=== PATIENT | male | born 1960 | race Caucasian/White ===

== ENCOUNTER 2016-09-16 17:50 | Emergency (ER) | payer SELFPAY ==
[~2016-09-16] VITALS: Ht 180.3 cm; Wt 112.0 kg
[2016-09-16 17:55] VITALS: Ht 180.3 cm; Wt 112.0 kg
[2016-09-16] MEDS ORDERED: KETOROLAC 30 MG INJ IM STA (19:17)
--- NOTE | 2016-09-16 19:24 | ERD ---
ER Documentation Chief Complaint Date/Time DATE: 09/16/16 TIME: 19:18 Chief Complaint pt bib family with c/o back pain starting few days ago, getting worse HPI The patient is a 55-year-old male here with bilateral low back pain since proximally 2 weeks ago when he lifted a 60-80 pound box at work. He denies any radiation. Denies saddle paresthesia or change in bladder or bowel habits or function. He denies limb numbness or weakness. He denies fever. This pain is better with sitting, laying down, walking, and standing. It is worse when he is changing positions from a sitting to a standing position. He had similar episode approximately 7 years ago which resolved completely. No home treatments. He was seen by his primary care doctor yesterday and was not needed for pain, however x-rays of his lumbar spine were obtained and the results will be available for the patient on Sunday at his follow-up appointment. The patient is concerned that he has a kidney stone and requested a urine test. ROS All systems reviewed and are negative except as per history of present illness. Medications Home Meds Active Scripts Naproxen* (Naprosyn*) 500 Mg Tablet, 500 MG PO BID Y for PAIN AND/OR INFLAMMATION, #30 TAB Prov:DYAN WOODRUFF, COMMUNITY HE[employer] REPRESENTATIVE 09/16/16 Allergies Allergies: Coded Allergies: No Known Allergy (Unverified , 09/16/16) PMhx/Soc Medical and Surgical Hx: pt denies Medical Hx, pt denies Surgical Hx History of Surgery: No Anesthesia Reaction: No Hx Neurological Disorder: No Hx Respiratory Disorders: No Hx Cardiac Disorders: Yes (HTN) Hx Psychiatric Problems: No Hx Miscellaneous Medical Probl: No Hx Alcohol Use: No Hx Substance Use: No Hx Tobacco Use: No Smoking Status: Never smoker Physical Exam Vitals Vital Signs Date Time Temp Pulse Resp B/P Pulse Ox O2 Delivery O2 Flow Rate FiO2 09/16/16 21:18 97.9 62 18 120/70 98 Room Air 09/16/16 17:55 98.3 88 18 118/72 98 Physical Exam INITIAL VITAL SIGNS: Reviewed by me GENERAL: Alert. Well developed and well nourished. No respiratory distress HEAD: Head is normocephalic. Atraumatic. EYES: EOMI. No scleral icterus. No conjunctival injection. ENT: External ears, nose, and mouth normal. Nasal passages patent. Moist mucous membranes. NECK: Supple. Full range of motion. Trachea midline. No bony or myofascial tenderness to palpation. No step-off. RESPIRATORY: No tachypnea. Clear to auscultation bilaterally. No wheezing, rales , or rhonchi. CV: Regular rate and rhythm. No murmurs, rubs, or gallops ABDOMEN: Soft, non-distended, non-tender. No guarding. Bowel sounds normal in all quadrants. BACK: No CVA tenderness. ROM limited secondary to pain in all directions. No bony or myofascial tenderness to palpation. No step-off. No lesions. No external signs of trauma. Negative straight leg raise. EXTREMITIES: Sensation intact to light touch in all extremities. Strength 5/5 in all extremities. Able to walk on his heels and on his toes. Gait is slow/ guarded, but steady and without limp. No obvious deformity. No clubbing or cyanosis. No edema. SKIN: Warm and dry. No diaphoresis. No obvious rashes or lesions. NEUROLOGIC: Alert and oriented x 3. Appropriate. Face is symmetric. Speech is normal. Moves all extremities equally. Results 24 hrs Laboratory Tests Test 09/16/16 19:40 Urine Bacteria FEW Urine Bilirubin NEGATIVE Urine Clarity CLEAR Urine Color LT. YELLOW Urine Glucose NEGATIVE% Urine Hemoglobin 1+ Urine Ketones NEGATIVE Urine Leukocyte Esterase NEGATIVE Urine Microscopic RBC 0-2/HPF Urine Microscopic WBC 0-2/HPF Urine Nitrite NEGATIVE Urine Specific [place] 1.010 Urine Squamous Epithelial Cells FEW Urine Total Protein NEGATIVE Urine Urobilinogen 0.2 E.U./dL Urine pH 6.0 Current Medications Medications (Trade) Dose Ordered Sig/Michaela Route PRN Reason Start Time Stop Time Status Last Admin Dose Admin Ketorolac Tromethamine (Toradol) 30 mg ONCE STAT IM 09/16/16 19:17 09/16/16 19:18 DC 09/16/16 19:30 Procedures/MDM EMERGENCY DEPARTMENT COURSE / MEDICAL DECISION MAKING: Nursing Notes Reviewed Previous Medical Records were requested via the electronic health record. The patient comes to the ED secondary to bilateral low back pain since approximately 2 weeks ago when he lifted a heavy item at work weighing approximately 60-80 pounds. My differential diagnosis was: renal colic, UTI, AAA, aortic dissection, sciatica, early zoster, epidural abscess, spinal tumor, cauda equina, cord compression, lumbosacral strain, chronic lumbosacral strain/pain (LBP). The patient was treated with Toradol 30 mg IM. With good relief. Urinalysis: no e/o acute infection or hematuria My initial impression was: Acute low back pain My final impression was the same and the patient was discharged. The patient is well-appearing, with normal vital signs, a benign physical exam, afebrile, no saddle paresthesia, no limb numbness or weakness, no bony tenderness to palpation, no radiating pain, no stomach upset, no chest pain, no evidence of urinary tract infection, no CVA tenderness, as such, I have low suspicion at this time for AAA, aortic dissection, sciatica, early zoster, epidural abscess, spinal tumor, cauda equina, cord compression, renal colic, or uti. The patient is a good candidate for outpatient care and will be discharged with instructions to follow up with their PMD on 09/18/16, for a recheck and to possibly get a referral to a physical therapist. I explained the findings and plan to the patient, who expressed verbal understanding and agreed with plan for discharge and follow up. The patient was given after care instructions and welcomed to return to the ED for any new or worsening symptoms. The patient was stable at the time of discharge. Prescribed Naprosyn 375 mg. BID DYAN WOODRUFF NP Sep 16, 2016 19:24
[2016-09-16 20:18] LABS: ADD UMIC YES; URINE BILIRUBIN (Dip) NEGATIVE (NEGATIVE); URINE BLOOD (Dip) 1+ (NEGATIVE); URINE COLOR LT. YELLOW (YELLOW); URINE GLUCOSE (Dip) NEGATIVE (NEGATIVE); URINE KETONES (Dip) NEGATIVE (NEGATIVE); URINE LEUKOCYTE ESTERASE (Dip) NEGATIVE (NEGATIVE); URINE NITRITE (Dip) NEGATIVE (NEGATIVE); URINE TOTAL PROTEIN (Dip) NEGATIVE (NEGATIVE); URINE UROBILINOGEN (Dip) 0.2 E.U./dL (0.1-1.0)
[2016-09-16 20:53] LABS: URINE RBCS 0-2 /HPF (0)
[2016-09-16 20:54] LABS: BACTERIA,URINE FEW; SQUAMOUS EPITHELIAL CELL,UR FEW
[2016-09-16] MEDS ORDERED: NAPR-260 PO (21:07)
[2016-09-16 21:18] VITALS: BP 120/70; PULSE 62; RESP 18; TEMP 97.9
== END 2016-09-16 21:18 | disposition home or self-care (01) ==
LOC: FTE 17:50
DX: M54.5 Low back pain (principal); I10 Essential (primary) hypertension
CPT/HCPCS: 81001; 87086; 96372; 99284; J1885; 81003